=== PATIENT | male | born 1985 | race African-American/Black ===

== ENCOUNTER 2020-11-05 08:50 | Emergency (ER) | payer MEDICAID, OTHER ==
[~2020-11-05] VITALS: Ht 170.2 cm; Wt 79.4 kg
[2020-11-05 08:50] VITALS: BP 124/78
== END 2020-11-05 09:03 ==
LOC: ER 08:50
DX: S00.511A Abrasion of lip, initial encounter (principal); R56.9 Unspecified convulsions; F17.210 Nicotine dependence, cigarettes, uncomplicated; Z86.73 Personal history of transient ischemic attack (TIA), and cerebral infarction without residual deficits; X58.XXXA Exposure to other specified factors, initial encounter; Y93.89 Activity, other specified; Y92.89 Other specified places as the place of occurrence of the external cause; Y99.8 Other external cause status